=== PATIENT | female | born 1975 | race African-American/Black ===

== ENCOUNTER 2019-10-07 09:37 | Day surgery (SDC) | payer OTHER ==
[2019-10-06 16:19] VITALS: BMI 27.3
[2019-10-07] MEDS ORDERED: LIDOCAINE HCL/PF 2% SDV 5ML VIAL ONE (12:59)
[2019-10-07] MEDS ORDERED: MIDAZOLAM HCL 2 MG/2 ML SINGLE DOSE VIAL ONE (12:59)
[2019-10-07] MEDS ORDERED: ceFAZolin SODIUM 1 GM VIAL ONE (12:59)
[2019-10-07] MEDS ORDERED: ceFAZolin SODIUM 1 GM VIAL IVPB ONE (13:01)
[2019-10-07] MEDS ORDERED: PROPOFOL 20 ML ONE (13:05)
[2019-10-07] MEDS ORDERED: KETAMINE HCL 200 MG/20 ML VIAL ONE (13:22)
[2019-10-07] MEDS ORDERED: oxyCODONE HCL 5 MG TABLET PO PRN (13:41)
[2019-10-07] MEDS ORDERED: ONDANSETRON 4 MG/2 ML VIAL IVPUSH PRN (13:41)
[2019-10-07] MEDS ORDERED: LACTATED RINGERS SOLUTION 1,000 ML IV SCH (13:45)
--- NOTE | 2019-10-07 14:00 | CONS ---
DATE OF CONSULTATION: DATE OF DICTATION: 10/07/2019 HISTORY: Patient is a 44-year-old female with history of bilateral kidney stones. She is status post left laser lithotripsy August 2019. She is complaining of right flank pain, urinary frequency, and nocturia. She has history of simple cysts of the kidneys. PAST SURGICAL HISTORY: Undergone a hysterectomy. PAST MEDICAL HISTORY: Also has a history of depression and anxiety. She also has gastroesophageal reflux disease. She is nulligravida. ALLERGIES: There is an allergy to DICLOXACILLIN and IBUPROFEN. MEDICATIONS: Presently, the patient is on gabapentin and Xanax. PHYSICAL EXAMINATION: Chest: Clear. Abdomen: Soft. There is right CVA tenderness. Pelvic: Reveals normal introitus. BUN 13, creatinine 0.6. Shree test is negative. IMPRESSION: At present is right kidney stone, overactive bladder. PLAN: Right extracorporeal shock-wave lithotripsy. Patient will undergo stone workup. Naun [id number]
--- NOTE | 2019-10-07 14:19 | CONS ---
DATE OF CONSULTATION: DATE OF DICTATION: 10/07/2019 HISTORY: Patient is a 44-year-old female with history of kidney stone in the right kidney. Also history of frequency, urgency, and dysuria. She does have history of major depressive disorder, right carpal tunnel syndrome, incisional hernia, which underwent repair. PHYSICAL EXAMINATION: General: She is to be alert, oriented. Chest: Clear. Abdomen: Revealed right CVA tenderness. Pelvic: Negative. Extremities: Full range of motion. No clubbing, cyanosis, or edema. Patient's BUN/creatinine ratio is 12.2, calcium is 9.5, glucose is 97. IMPRESSION: Right renal stone. PLAN: Right laser lithotripsy. Naun [id number]
[2019-10-07 17:01] VITALS: TEMP 97.7
[2019-10-07 17:08] VITALS: BP 120/89; PULSE 85
--- NOTE | 2019-10-31 19:00 | OP ---
DATE OF OPERATION: 10/07/2019 INDICATION: The patient is a 44-year-old female with right renal stone and microscopic hematuria. PREOPERATIVE DIAGNOSIS: Right renal stone. POSTOPERATIVE DIAGNOSIS: Right renal stone. OPERATIVE PROCEDURE: Right extracorporeal shockwave lithotripsy. ANESTHESIA: General. DESCRIPTION OF PROCEDURE: Under above-stated anesthesia, patient was placed in the supine position. She received 2500 shocks to the stone in the right renal pelvis. There appeared to be a good fragmentation of the stone. Afterwards, the patient tolerated the procedure well and returned to the recovery room in good condition. Naun [id number]
== END 2019-10-07 16:00 | disposition home or self-care (01) ==
LOC: JASU-SURG 09:37
PROVIDERS: ATTEND Urology
PROC: 0TF3XZZ Fragmentation in Right Kidney Pelvis, External Approach (ICD-10-PCS; principal; 2019-10-07 12:30)
DX: N20.0 Calculus of kidney (principal)
CPT/HCPCS: 84703; 94760

== ENCOUNTER 2020-06-16 06:58 | Day surgery (SDC) | payer OTHER ==
[2020-06-16] MEDS ORDERED: LIDOCAINE HCL 2% (20ML MULTI-DOSE VIAL) ONE ×2 (07:28→07:46)
[2020-06-16] MEDS ORDERED: MIDAZOLAM HCL 2 MG/2 ML SINGLE DOSE VIAL ONE (07:32)
[2020-06-16] MEDS ORDERED: PROPOFOL 20 ML ONE (07:32)
[2020-06-16 07:35] VITALS: TEMP 98.1; BMI 27.3
[2020-06-16] MEDS ORDERED: SUCCINYLCHOLINE CHLORIDE 200 MG/10 ML SYRINGE ONE (07:40)
[2020-06-16] MEDS ORDERED: LIDOCAINE HCL 2% (50ML VIAL) SQ ONE (08:43)
[2020-06-16 09:32] VITALS: BP 129/89; PULSE 66
[2020-06-16] MEDS ORDERED: oxyCODONE HCL 5 MG TABLET PO PRN (10:00)
--- NOTE | 2020-06-16 10:02 | OP ---
DATE OF OPERATION: 06/16/2020 PREOPERATIVE DIAGNOSIS: Right carpal tunnel syndrome. POSTOPERATIVE DIAGNOSIS: Right carpal tunnel syndrome. OPERATIVE PROCEDURE: Right carpal tunnel release. ANESTHESIA: Local with sedation. COMPLICATIONS: None. ESTIMATED BLOOD LOSS: Minimal. INDICATION FOR PROCEDURE: The patient is a 45-year-old female with the above finding indicated for operative treatment. Risks, benefits, alternatives were discussed with patient at length. Proper informed consent was obtained. PROCEDURE: After proper identification of patient and correct operative site patient brought to the operating room and placed supine on the operating table, all bony prominences well padded. Sedation with local anesthesia was given. Right upper extremity was prepped and draped in the usual sterile fashion. Well-padded tourniquet was placed over the sterile prep. Esmarch bandage used to exsanguinate the right upper extremity. Tourniquet was inflated to 250 mmHg. A longitudinal incision made in the proximal aspect of the palm. Incision carried sharply through the skin, with blunt and sharp dissection through the subcutaneous tissue. Palmar fascia divided in line with the incision. Transverse carpal ligament was divided longitudinally along with the distal 4 cm of the antebrachial fascia under direct visualization with loupe magnification. This provided complete release of the median nerve at the wrist. Wound was irrigated and repaired with 5-0 nylon sutures. All the prep solution was washed off the arm as the patient has very sensitive skin and only gauze dressings were placed. She was brought to the recovery room in stable condition. She tolerated the procedure well. Naun [id number]
== END 2020-06-16 09:45 | disposition home or self-care (01) ==
LOC: FASU 06:58
PROVIDERS: ATTEND Orthopaedic Surgery Hand Surgery
PROC: 01N50ZZ Release Median Nerve, Open Approach (ICD-10-PCS; principal; 2020-06-16 08:46)
DX: G56.01 Carpal tunnel syndrome, right upper limb (principal)